=== PATIENT | male | born 1980 | race Caucasian/White ===

== ENCOUNTER → 2021-05-18 14:09 | Outpatient (CLI) | payer MEDICAID, SELFPAY ==
--- NOTE | 2021-05-18 14:37 | RAD_ITS ---
EXAM: XR CHEST, 2 VIEWS CLINICAL INDICATION: COPD TECHNIQUE: Frontal and lateral views of the chest. This report was created using [employer] report generation technology. COMPARISON: None. FINDINGS: LUNGS AND PLEURAL SPACES: Unremarkable. No consolidation or edema. No pneumothorax. No effusion. HEART: Unremarkable. Cardiac silhouette not enlarged. MEDIASTINUM: Central airways and mediastinal contour are unremarkable. BONES/JOINTS: Unremarkable. SOFT TISSUES: Unremarkable. RAD/Chest PA and Lateral IMPRESSION: No radiographic evidence of acute cardiopulmonary disease. Electronically Signed: Antelmo Mendoza MD at 16:49 EDT , Service support ,
[2021-05-18 16:23] LABS: Absolute Lymphocyte Count 1.88 X10^3/uL (0.83-4.51); Absolute Neutrophil Count 9.7 X10^3/uL (2.0-7.7); Basophil# 0.04 X10^3/uL; Basophil% 0.3 % (0-1); Eosinophil# 0.06 X10^3/uL; Eosinophils% 0.5 % (0-5); Hematocrit 47.1 % (40-54); Hemoglobin 15.2 g/dL (13.0-16.5); Lymphocyte # 1.88 X10^3/ul (0.83-4.51); Lymphocyte % 15.3 % (19-41); Mean Corp Hgb Conc 32.3 g/dL (32-36); Mean Corpuscular Hgb 29.1 pg (27.0-32.0); Mean Corpuscular Volume 90.2 fL (80-94); Mean Platelet Vol. 11.7 fl (6.2-12.0); Monocyte% 4.9 % (0-10); NRBC Flagged by Analyzer 0 % (0-5); Neutrophil # 9.69 X10^3/uL (2.7-7.7); Neutrophil % 78.6 % (47-70); Platelet Count 176 K/mm3 (150-450); RBC Distribution Width CV 13.6 % (11.6-14.6); RBC Distribution Width SD 45.8 fl (35.1-43.9); Red Blood Count 5.22 M/mm3 (4.6-6.2); White Blood Count 12.3 K/mm3 (4.4-11.0)
[2021-05-18 17:14] LABS: ALB/GLOB Ratio 1.2 RATIO (0.9-2.4); AST(SGOT) 14 U/L (15-37); Alanine Aminotransfer ALT/SGPT 19 U/L (16-61); Alkaline Phosphatase 108 U/L (45-117); Anion Gap 7 (5-15); BUN 15 mg/dL (7-18); BUN/Creat Ratio 14.6 RATIO (10-20); Calcium,Total 9.2 mg/dL (8.5-10.1); Chloride 102 mmol/L (98-107); Cholesterol 267 mg/dL (200); Creatinine, Serum 1.03 mg/dL (0.70-1.30); EST Glomerular Filtration Rate 84 mL/min (>60); Est Glom Filt Rate - Afr Amer 102 mL/min (>60); Globulin 3.4 g/dL (2.2-4.2); Glucose 81 mg/dL (74-106); High Density Lipoprotein 42 mg/dL; Potassium 3.9 mmol/L (3.5-5.1); Protein, Total 7.4 g/dL (6.4-8.2); Sodium Level 139 mmol/L (136-145); Thyroid Stim Hormone (TSH) 1.17 uIU/mL (0.358-3.74); Triglycerides 171 mg/dL; Very Low Density Lipoprotein 34 mg/dL (5-40)
== END ==
PROVIDERS: Referring Provider Nurse Practitioner Adult Health; Visit Provider Nurse Practitioner Adult Health
DX: J44.9 Chronic obstructive pulmonary disease, unspecified (principal)
CPT/HCPCS: 36415; 71046; 80053; 80061; 84443; 85025

== ENCOUNTER 2021-06-05 21:50 | Emergency (ER) | payer MEDICAID, SELFPAY ==
[2021-06-05 21:52] VITALS: BP 112/72; PULSE 69; RESP 16; TEMP 36.2; O2SAT 99; BMI 21.0
--- NOTE | 2021-06-05 22:13 | EX.ED.DYSGE1 ---
HPI History of Present Illness Chief Complaint: Abscess Narrative Narrative: Patient presenting for evaluation secondary to an axillary abscess. Patient states that this been present for approximately a month. States that initially it was small in size but over the course of the last week or 2 it significantly increased in size and was increasing in pain. Reports that he developed a pustule over top of it, and then today it is spontaneously ruptured expelling a large amount of purulent fluid that he described as looking like large. Patient states that he is able to express some more fluid out of it, but was not sure what to do now that it ruptured now is presenting for further evaluation. Patient denies any history of chronic medical issues. Denies any history of immunosuppression. He has not had any fever associated with this. The first time is ever had a abscess such as this. Review of systems otherwise negative. PFSH PFSH Home Medications sulfamethoxazole-trimethoprim [Bactrim DS] 1 tab PO BID #14 tab 06/05/21 [Rx Last Taken Unknown] Allergy/AdvReac Type Severity Reaction Status Date / Time No Known Allergies Allergy Verified 06/05/21 21:51 ROS ROS ED Constitutional Constitutional ED: Denies fever(s) Cardiovascular Cardiovascular: Denies chest pain Respiratory/Chest Respiratory/Chest: Denies cough or dyspnea Gastrointestinal Gastrointestinal: Denies vomiting Musculoskeletal Musculoskeletal: Denies myalgias Integumentary Reports abscess Neurologic Neurologic: Denies weakness EXAM Physical Exam Const Vital Signs: 06/05/21 21:52 Temperature 97.2 F L Temperature Source Temporal Pulse Rate 69 Respiratory Rate 16 Blood Pressure 112/72 Blood Pressure Mean 85 Pulse Ox 99 Oxygen Delivery Method Room Air Positive well nourished and well developed General Appearance ED: well developed Eyes EOMs intact bilaterally Resp normal respiratory effort Cardio regular rate Extremity Extremity Narrative: Examination the patient's left axilla shows a spontaneously drained abscess measuring approximately 4 cm across with about a 1 cm area in the center where it had spontaneously ruptured. There is no evidence of remaining fluctuance. There is some surrounding erythema and induration. No lymphangitic streaking. Neuro oriented x3 Sensorium / Orientation: alert Psych mental status grossly normal Skin Wounds: wounds noted MDM MDM MDM Narrative Medical decision making narrative: Patient presented with an abscess that spontaneously drained. There is actually no indication for further opening of the wound as it measures about a centimeter and is full-thickness down into the cavity of this abscess. Patient does have some surrounding erythema. Patient be placed on a course of Bactrim. He was recommended to do antibiotic ointment over top of this and then to do warm compresses 2-3 times a day. Patient was discharged in stable condition. Discharge Plan Triage Chief Complaint: Abscess ED Provider: Kenneth Dean Dx/Rx/DC Orders Clinical Impression: Abscess of axilla, left Instructions: ED Abscess Antibiotic Treatment Only Prescriptions: New sulfamethoxazole-trimethoprim [Bactrim DS] 800-160 mg tablet 1 tab PO BID Qty: 14 RF: 0 Primary Care Provider: [facility] Rimma Lee Referrals: [facility] Rimma Lee [Primary Care Provider] - As Needed Disposition Disposition: Home, Self Care
[2021-06-05 22:27] VITALS: BP 110/71; PULSE 67; RESP 16; O2SAT 97
[2021-06-05] MEDS: Smz/Tmp Ds Tablet 1 TABLET PO (22:28)
== END 2021-06-05 22:29 | disposition home or self-care (01) ==
PROVIDERS: Emergency Provider Emergency Medicine
DX: L02.412 Cutaneous abscess of left axilla (principal)
CPT/HCPCS: 99283

== ENCOUNTER 2021-06-18 14:48 | Emergency (ER) | payer MEDICAID, SELFPAY ==
[2021-06-18 14:49] VITALS: BP 115/75; PULSE 75; RESP 16; TEMP 36.6; O2SAT 99; BMI 21.2
--- NOTE | 2021-06-18 15:08 | CCN.REFER ---
Pt. presents with left side abdominal pain. Has been ongoing for at least six months or longer. Pt. also wants treated for auditory hallucinations. reports voices say they will cut my head off. Mostly at night. Some during day. No suicidal or homicidal ideation. Pt. does see Dr. Solitario and was given Xanax one year ago, but has been having auditory hallucinations for three years.
--- NOTE | 2021-06-18 15:29 | CT_ITS ---
EXAM: CT ABDOMEN AND PELVIS WITHOUT INTRAVENOUS CONTRAST CLINICAL INDICATION: Abdominal pain TECHNIQUE: Helically acquired images were obtained of the abdomen and pelvis without intravenous contrast. This CT exam was performed using one or more of the following dose reduction techniques: automated exposure control, adjustment of the mA and/or kV according to patient size, and/or use of iterative reconstruction technique. This report was created using [employer] report generation technology. COMPARISON: None. FINDINGS: LOWER THORAX: Unremarkable. Lung bases are clear. No cardiomegaly. No significant pericardial effusion. ABDOMEN: LIVER: Unremarkable. Homogeneous. GALLBLADDER AND BILE DUCTS: Unremarkable. No calcified gallstones. No gallbladder distention or wall edema. No intra- or extrahepatic biliary ductal dilation. PANCREAS: Unremarkable. No focal cystic mass. SPLEEN: Unremarkable. Normal size without focal cystic or solid mass. ADRENALS: Unremarkable. No nodules. KIDNEYS AND URETERS: Unremarkable. Normal renal size and position. No hydronephrosis. STOMACH AND BOWEL: Unremarkable. No stomach or bowel distention. No focal inflammatory change. PELVIS: APPENDIX: No evidence of acute appendicitis. Normal visualized appendix. BLADDER: Unremarkable. REPRODUCTIVE: Unremarkable as visualized. No mass. ABDOMEN and PELVIS: INTRAPERITONEAL SPACE: Unremarkable. No ascites or other fluid collection. No free air. BONES/JOINTS: Unremarkable. No suspicious lytic or blastic abnormality. SOFT TISSUES: Unremarkable. No discrete abdominal or pelvic wall hernia. VASCULATURE: Unremarkable. Abdominal aorta is normal in caliber. LYMPH NODES: Unremarkable. No enlarged lymph nodes. CT/Abdomen/Pelvis without Cont IMPRESSION: Negative CT of the abdomen and pelvis without intravenous contrast. Electronically Signed: Salma Lemon MD at 16:26 EST Tel , Service support ,
--- NOTE | 2021-06-18 15:33 | EX.ED.DYSGE1 ---
HPI History of Present Illness Chief Complaint: Mental Health Detail of Chief Complaint: Auditory hallucinations Informant: patient and spouse/S.O. Onset/Context/Timing Onset: - (2 years) Context: Gradual Onset Timing: Waxes and wanes Worsened by: Nighttime Relieved by: Nothing Narrative Narrative: Patient presents with left-sided abdominal pain that has been constant for several months. Patient states it is over his left lower abdomen and left flank area. Patient admits to some nausea but denies any vomiting or diarrhea. Patient denies any melena. Patient denies any dysuria or hematuria. Patient states he gets occasional urinary frequency. Patient denies any fevers or chills. Patient also states that he has some auditory hallucinations that are worse at night. Patient states these have been constant for the past 2 years. Patient states he was given a prescription for Xanax which has not helped. states that patient was also taking melatonin with the Xanax. states that he has not been sleeping much because of the voices despite the melatonin and Xanax. Patient states the voices are telling him that they are going to hurt him but they are not telling him to hurt himself. They are not telling him to hurt anyone else. [facility] Medical History (Updated 06/18/21 @ 20:[address] Rainer Andersen DO) COPD (chronic obstructive pulmonary disease) Home Medications alprazolam 1 mg PO QPM 06/18/21 [History Last Taken Unknown] zolpidem [Ambien] 5 mg PO QHS PRN #30 tab 06/18/21 [Rx Last Taken Unknown] Allergy/AdvReac Type Severity Reaction Status Date / Time No Known Allergies Allergy Verified 06/05/21 21:51 Surgical History no surgical history no surgical history Social History Smoking Status: Current every day smoker tobacco type: cigarettes ROS ROS ED Constitutional Constitutional ED: Denies chills or fever(s) Eyes Eyes: Denies blurry vision or change in vision ENT ENT ED: Reports ear pain bilateral; Denies rhinorrhea or sore throat Cardiovascular Cardiovascular: Denies chest pain or palpitations Respiratory/Chest Respiratory/Chest: Reports cough and sputum; Denies dyspnea Gastrointestinal Gastrointestinal: Reports abdominal pain and nausea; Denies diarrhea, melena or vomiting Genitourinary Genitourinary ED: Reports urinary frequency; Denies dysuria or hematuria Musculoskeletal Musculoskeletal: Reports back pain and neck pain Integumentary Denies abscess or rash Neurologic Neurologic: Denies headache(s) or weakness Allergic/Immunologic Allergic/Immunologic ED: Denies mouth swelling or urticaria EXAM Physical Exam Const Vital Signs: 06/18/21 14:49 06/18/21 16:45 Temperature 97.8 F Temperature Source Temporal Pulse Rate 75 53 L Respiratory Rate 16 20 H Blood Pressure 115/75 116/76 Blood Pressure Mean 88 89 Pulse Ox 99 100 Oxygen Delivery Method Room Air Room Air Positive well nourished and well developed General Appearance ED: well developed HEENT Reports moist mucous membranes Neck supple and no JVD Resp normal respiratory effort and clear to auscultation bilaterally Cardio regular rate, regular rhythm and no murmurs GI normal to inspection, nondistended, normoactive bowel sounds Palpation: soft and tender LLQ (Mild); Negative for guarding or rebound tenderness present Back/Spine General Back: CVA tenderness left (Mild) Extremity normal to inspection General Extremety ED: Negative for edema or tenderness General Extremity: Negative for edema Neuro oriented x3, CN's II-XII intact bilaterally and no sensory deficits noted Sensorium / Orientation: alert Motor Exam: strength 5/5 throughout Psych mental status grossly normal Thought Content: No suicidality, No homicidality, No delusion(s) and hallucination(s) Positive for auditory Skin no rashes or lesions noted MDM MDM MDM Narrative Medical decision making narrative: CBC and comprehensive metabolic profile were obtained were within normal limits. Lipase was normal. Urinalysis does not show any evidence of urinary tract infection. Urine tox screen was positive for benzodiazepines which is prescribed. Serum alcohol level was normal. CT scan of the abdomen and pelvis was obtained. There is no acute intra-abdominal abnormality. Case was discussed with crisis counselor. She was able to arrange for an appointment tomorrow at 10 AM at the counseling center. Patient was instructed to stop taking his Xanax. Patient was given a prescription for Ambien. Patient was instructed to follow-up as scheduled. Patient requested referral to a automobile upholsterer apprentice. Patient was given the name of the automobile upholsterer apprentice. Patient understood and was agreeable with the plan. All questions were answered. Lab Data Attestation: I reviewed the patient's lab results. Labs: Laboratory Results - last 24 hr 06/18/21 06/18/21 06/18/21 15:45 15:45 15:45 WBC 10.7 RBC 5.20 Hgb 15.6 Hct 47.5 MCV 91.3 MCH 30.0 MCHC 32.8 RDW Std Deviation 46.0 H RDW Coeff of Ben 13.5 Plt Count 187 MPV 10.0 Immature Gran % (Auto) 0.400 Neut % (Auto) 65.4 Lymph % (Auto) 26.1 [place] % (Auto) 5.9 Eos % (Auto) 1.5 Baso % (Auto) 0.7 Absolute Neuts (auto) 7.0 Absolute Lymphs (auto) 2.80 Nucleated RBC % 0 Sodium 138 Potassium 4.3 Chloride 105 Carbon Dioxide 32.0 Anion Gap 1 L BUN 9 Creatinine 0.94 Estim Creat Clear Calc 97.21 Est GFR (MDRD) Af Amer 114 Est GFR (MDRD) Non-Af 94 BUN/Creatinine Ratio 9.6 L Glucose 86 Calcium 8.9 Total Bilirubin 0.20 AST 12 L ALT 13 L Alkaline Phosphatase 94 Total Protein 6.8 Albumin 3.5 Globulin 3.3 Albumin/Globulin Ratio 1.1 Lipase 230 Urine Color Urine Clarity Urine pH Ur Specific [place] Urine Protein Urine Glucose (UA) Urine Ketones Urine Occult Blood Urine Nitrite Urine Bilirubin Urine Urobilinogen Ur Leukocyte Esterase Urine RBC Urine WBC Ur Squamous Epith Cells Urine Bacteria Urine Mucus Urine Opiates Screen Urine Methadone Screen Ur Barbiturates Screen Ur Phencyclidine Scrn Ur Amphetamines Screen U Methamphetamin-MDMA U Benzodiazepines Scrn Urine Cocaine Screen U Cannabinoids Screen Ur Drug Screen Comment Ethyl Alcohol < 3.0 06/18/21 06/18/21 15:45 15:45 WBC RBC Hgb Hct MCV MCH MCHC RDW Std Deviation RDW Coeff of Ben Plt Count MPV Immature Gran % (Auto) Neut % (Auto) Lymph % (Auto) [place] % (Auto) Eos % (Auto) Baso % (Auto) Absolute Neuts (auto) Absolute Lymphs (auto) Nucleated RBC % Sodium Potassium Chloride Carbon Dioxide Anion Gap BUN Creatinine Estim Creat Clear Calc Est GFR (MDRD) Af Amer Est GFR (MDRD) Non-Af BUN/Creatinine Ratio Glucose Calcium Total Bilirubin AST ALT Alkaline Phosphatase Total Protein Albumin Globulin Albumin/Globulin Ratio Lipase Urine Color Yellow Urine Clarity Clear Urine pH 7.0 Ur Specific [place] 1.010 Urine Protein Negative Urine Glucose (UA) Normal Urine Ketones Negative Urine Occult Blood Negative Urine Nitrite Negative Urine Bilirubin Negative Urine Urobilinogen Normal Ur Leukocyte Esterase Negative Urine RBC 0-5 SEEN Urine WBC 0-5 SEEN Ur Squamous Epith Cells 0-5 SEEN Urine Bacteria 0 SEEN Urine Mucus 0 SEEN Urine Opiates Screen NEGATIVE Urine Methadone Screen NEGATIVE Ur Barbiturates Screen NEGATIVE Ur Phencyclidine Scrn NEGATIVE Ur Amphetamines Screen NEGATIVE U Methamphetamin-MDMA NEGATIVE U Benzodiazepines Scrn POSITIVE H Urine Cocaine Screen NEGATIVE U Cannabinoids Screen NEGATIVE Ur Drug Screen Comment Ethyl Alcohol Radiography Diagnostic Testing: Clinical Impression(s) from Imaging Studies Abdomen/Pelvis CT 06/18/21 15:29 IMPRESSION: Negative CT of the abdomen and pelvis without intravenous contrast. Electronically Signed: Salma Lemon MD at 16:26 EST Tel , Service support , Discharge Plan Triage Chief Complaint: Mental Health Other Complaint: Abd Pain ED Provider: Rainer Andersen Dx/Rx/DC Orders Clinical Impression: Auditory hallucinations, Abdominal pain in male Instructions: ED Abdominal Pain Unkn Cause Male..., ED Symptoms With Uncertain Cause Prescriptions: New zolpidem [Ambien] 5 mg tablet 5 mg PO QHS PRN (Reason: insomnia) Qty: 30 RF: 0 No Action alprazolam 0.5 mg tablet 1 mg PO QPM RF: 0 Primary Care Provider: [facility] Rimma Lee Referrals: Counseling,Center [GROUP OF PHYSICIANS] - 1 Day Noe Iyer DO [STAFF PHYSICIAN] [facility]7 [facility] Disposition Disposition: Home, Self Care
[2021-06-18] MEDS: Ketorolac 30 MG/ML Syringe IV (15:44)
[2021-06-18] MEDS: 0.9% Normal Saline 1,000 ML 1000 ML IV (15:44)
[2021-06-18 15:52] LABS: Bacteria 0 SEEN /hpf (None Seen); Mucous, Urine 0 SEEN /hpf (<or=2+)
[2021-06-18 15:57] LABS: Glucose, Dipstick Normal (Normal); Ketone-Dipstick Negative (Negative); Leukocyte Esterase-Dipstick Negative /ul (Negative); Nitrite-Dipstick Negative (Negative); Occult Blood-Urine Negative /ul (Negative); Protein-Dipstick Negative (Negative); Urine Bilirubin Dipstick Negative (Negative); Urine Urobilinogen Normal (Normal)
[2021-06-18 15:58] LABS: Basophil# 0.07 X10^3/uL; Basophil% 0.7 % (0-1); Eosinophil# 0.16 X10^3/uL; Eosinophils% 1.5 % (0-5); Hematocrit 47.5 % (40-54); Hemoglobin 15.6 g/dL (13.0-16.5); Lymphocyte % 26.1 % (19-41); Mean Corp Hgb Conc 32.8 g/dL (32-36); Mean Corpuscular Volume 91.3 fL (80-94); Monocyte# 0.63 X10^3/uL; Monocyte% 5.9 % (0-10); NRBC Flagged by Analyzer 0 % (0-5); Neutrophil # 7.02 X10^3/uL (2.7-7.7); Neutrophil % 65.4 % (47-70); Platelet Count 187 K/mm3 (150-450); RBC Distribution Width CV 13.5 % (11.6-14.6); White Blood Count 10.7 K/mm3 (4.4-11.0)
[2021-06-18 16:02] LABS: Color, Urine Yellow (Yellow); Urine Clarity Clear (Clear)
[2021-06-18 16:04] LABS: Squamous Epithelial Cells - UA 0-5 SEEN /hpf (0-5)
[2021-06-18 16:06] LABS: Red Blood Cells-Urine 0-5 SEEN /hpf (0-5); White Blood Cells 0-5 SEEN /hpf (0-5)
[2021-06-18 16:31] LABS: Amphetamine Urine VISTA NEGATIVE (<1000 ng/mL); Barbiturate Urine VISTA NEGATIVE (< 200 ng/mL); Benzodiazepine Urine VISTA POSITIVE (< 200 ng/mL); Cocaine Urine VISTA NEGATIVE (< 300 ng/mL); Ecstacy Urine VISTA NEGATIVE (< 500 ng/mL); Methadone Urine VISTA NEGATIVE (< 300 ng/mL); PCP Urine VISTA NEGATIVE (< 25 ng/mL); THC Urine VISTA NEGATIVE (< 50 ng/mL); Vista UDS pH Range 6
[2021-06-18 16:32] LABS: ALB/GLOB Ratio 1.1 RATIO (0.9-2.4); AST(SGOT) 12 U/L (15-37); Alanine Aminotransfer ALT/SGPT 13 U/L (16-61); Albumin, Serum 3.5 g/dL (3.2-5.0); Alcohol, Blood (Medical)-Serum < 3.0 mg/dL; Alkaline Phosphatase 94 U/L (45-117); Anion Gap 1 (5-15); BUN 9 mg/dL (7-18); BUN/Creat Ratio 9.6 RATIO (10-20); Calcium,Total 8.9 mg/dL (8.5-10.1); Chloride 105 mmol/L (98-107); Creatinine, Serum 0.94 mg/dL (0.70-1.30); EST Glomerular Filtration Rate 94 mL/min (>60); Est Glom Filt Rate - Afr Amer 114 mL/min (>60); Estimated Creatinine Clearance 97.21 ml/min; Globulin 3.3 g/dL (2.2-4.2); Glucose 86 mg/dL (74-106); Lipase 230 U/L (73-393); Potassium 4.3 mmol/L (3.5-5.1); Protein, Total 6.8 g/dL (6.4-8.2); Sodium Level 138 mmol/L (136-145)
[2021-06-18 16:45] VITALS: BP 116/76; PULSE 53; RESP 20; O2SAT 100
--- NOTE | 2021-06-18 17:36 | ED.RN ---
SHASHI WITH CRISIS WILL BE IN TO SEE THE PT. SHE IS CURRENTLY DEALING WITH ANOTHER SITUATION IN THE COMMUNITY.
--- NOTE | 2021-06-18 19:31 | ED.RN ---
PAPERWORK FAXED TO CRISIS
--- NOTE | 2021-06-18 20:07 | ED.RN ---
Cheryl, from Crisis, states that pt. is okay to be discharged home. Pt. has a follow up appointment with her in the morning, as well as a referral to psychiatry.
[2021-06-18 20:28] VITALS: RESP 16
== END 2021-06-18 20:29 | disposition home or self-care (01) ==
PROVIDERS: Emergency Provider Emergency Medicine
DX: R44.0 Auditory hallucinations (principal); R10.32 Left lower quadrant pain; J44.9 Chronic obstructive pulmonary disease, unspecified; F17.210 Nicotine dependence, cigarettes, uncomplicated
CPT/HCPCS: 74176; 80053; 80307; 81001; 82077; 83690; 85025; 87426; 96361; 96374; 99285; J7030; A4216

== ENCOUNTER → 2021-07-04 15:22 | Outpatient (CLI) | payer MEDICAID, SELFPAY ==
[2021-07-04 16:49] LABS: Absolute Lymphocyte Count 2.86 X10^3/uL (0.83-4.51); Absolute Neutrophil Count 4.5 X10^3/uL (2.0-7.7); Basophil# 0.06 X10^3/uL; Basophil% 0.7 % (0-1); Eosinophil# 0.15 X10^3/uL; Eosinophils% 1.9 % (0-5); Hemoglobin 15.9 g/dL (13.0-16.5); Lymphocyte # 2.86 X10^3/ul (0.83-4.51); Lymphocyte % 35.3 % (19-41); Mean Corp Hgb Conc 33.1 g/dL (32-36); Mean Corpuscular Hgb 30.3 pg (27.0-32.0); Mean Corpuscular Volume 91.6 fL (80-94); Mean Platelet Vol. 11.7 fl (6.2-12.0); Monocyte% 6.2 % (0-10); NRBC Flagged by Analyzer 0 % (0-5); Neutrophil # 4.51 X10^3/uL (2.7-7.7); Neutrophil % 55.7 % (47-70); Platelet Count 162 K/mm3 (150-450); RBC Distribution Width CV 13.8 % (11.6-14.6); RBC Distribution Width SD 46.8 fl (35.1-43.9); Red Blood Count 5.24 M/mm3 (4.6-6.2); White Blood Count 8.1 K/mm3 (4.4-11.0)
[2021-07-04 17:37] LABS: Lipase 164 U/L (73-393)
[2021-07-06 08:43] LABS: H. Pylori Antibody (IgG) 5.61 (0.00-0.79)
== END ==
PROVIDERS: Visit Provider Nurse Practitioner Adult Health
DX: R10.84 Generalized abdominal pain (principal)
CPT/HCPCS: 36415; 83690; 85025; 86677

== ENCOUNTER 2022-02-05 16:23 | Emergency (ER) | payer MEDICAID, SELFPAY ==
[2022-02-05 16:23] VITALS: BP 114/69; PULSE 60; RESP 18; TEMP 37.2; O2SAT 97; BMI 21.1
--- NOTE | 2022-02-05 17:09 | EKG12_ITS ---
Test Reason : ABDOMINAL PAIN Blood Pressure : / mmHG Vent. Rate : 066 BPM Atrial Rate : 066 BPM P-R Int : 158 ms QRS Dur : 084 ms QT Int : 404 ms P-R-T Axes : 073 110 038 degrees QTc Int : 423 ms Normal sinus rhythm with sinus arrhythmia Septal infarct , age undetermined , cannot be excluded Abnormal ECG Confirmed by VERNA MACIEL, BORIS ([id number]), editor farm journal JAVID HAYS ([id number]) on 02/07/2022 8:47:27 AM Referred By: KONSTANTIN/SOPHIA Confirmed By:BORIS GILLESPIE MD
--- NOTE | 2022-02-05 17:10 | EX.ED.DYSGE1 ---
HPI History of Present Illness Chief Complaint: Abd Pain Informant: patient Narrative Narrative: Patient presents with left upper quadrant area pain. It sounds like this is likely been going on for a year or more. It sometimes is bothered with motion. Sometimes food makes it better sometimes food makes it worse. He has been seen here for it had blood work and CAT scan. He just saw his doctor within the past week. He has a referral going to gastroenterology. He did not tell me he was started on pantoprazole. We found out on his med list that this was just filled. After extensive questioning we find out that he did fill this and just started it 2 days ago. No interval change. He does get a very acid sour taste in his mouth intermittently when the symptoms are acting up. He states sometimes it seems to move up into his chest a little bit. But he is not short of breath. He does have some COPD but is not having problems. In addition to meds listed, he is also on atorvastatin. This is not new or different. He has no abdominal surgery history. No blood in his stool. He is not vomiting. No fevers or chills. Nothing was really different today. He he just was concerned that he has not gotten a referral to Dr. Iyer after seeing his doctor for this this past week. He is frustrated that the symptoms are still going on after almost a year or more. [facility] Medical History COPD (chronic obstructive pulmonary disease) Home Medications albuterol sulfate 90 mcg/actuation aerosol inhaler inh inhalation 02/05/22 [History Last Taken Unknown] pantoprazole 40 mg tablet,delayed release 1 tab PO DAILY 02/05/22 [History Last Taken Unknown] Allergy/AdvReac Type Severity Reaction Status Date / Time No Known Allergies Allergy Verified 02/05/22 16:30 Social History Smoking Status: Current every day smoker tobacco type: cigarettes ROS ROS ED Constitutional Constitutional ED: Denies chills, fever(s) or weight loss ENT ENT ED: Reports other Details: Is it of occasional acid taste in throat. ; Denies rhinorrhea or sore throat Cardiovascular Cardiovascular: Denies chest pain Respiratory/Chest Respiratory/Chest: Denies cough or dyspnea Gastrointestinal Gastrointestinal: Reports abdominal pain and nausea; Denies constipation, diarrhea, melena or vomiting Genitourinary Genitourinary ED: Denies dysuria or hematuria Musculoskeletal Musculoskeletal: Denies back pain Integumentary Denies rash Neurologic Neurologic: Denies paresthesias or weakness Endocrine Endocrinology: Denies polydipsia or polyuria Hematologic/Lymphatic Hematologic/Lymphatic: Denies anemia, easy bleeding or easy bruising EXAM Physical Exam Const Vital Signs: 02/05/22 16:23 Temperature 99.0 F Temperature Source Temporal Pulse Rate 60 Respiratory Rate 18 Blood Pressure 114/69 Blood Pressure Mean 84 Pulse Ox 97 Oxygen Delivery Method Room Air Positive well nourished and well developed General Appearance ED: well developed and NAD; Negative for cyanotic or diaphoretic HEENT Reports moist mucous membranes Eyes General Eye ED: Negative for pale conjunctiva or scleral icterus Neck no JVD Chest Wall inspection of chest normal Resp normal respiratory effort and clear to auscultation bilaterally Resp Narrative: But no pain with deep breath Auscultation: Negative for rales, rhonchi or wheezes Cardio regular rate and regular rhythm Rate: Negative for bradycardia or tachycardic GI normal to inspection, nondistended, normoactive bowel sounds and non-tender GI Narrative: Abdomen has no tenderness on exam. Auscultation: normoactive bowel sounds Back/Spine no CVA tenderness Extremity normal to inspection General Extremety ED: Negative for edema or tenderness General Extremity: Negative for edema Neuro oriented x3 Psych mental status grossly normal MDM MDM MDM Narrative Medical decision making narrative: Patient's blood work shows normal CBC. Electrolytes are normal. Liver function tests are overall normal. Lipase is normal. Because the patient is left upper quadrant and occasionally goes into the chest I did check a troponin is negative also. I also did abdominal and chest films that showed no acute process. Patient's been having symptoms for months to year. He just started pantoprazole about 2 days ago. I think he should continue this. I think outpatient follow-up is appropriate. Lab Data Attestation: I reviewed the patient's lab results. Labs: Laboratory Results - last 24 hr 02/05/22 02/05/22 17:25 17:25 WBC 8.3 RBC 5.29 Hgb 15.9 Hct 47.1 MCV 89.0 MCH 30.1 MCHC 33.8 RDW Std Deviation 44.1 H RDW Coeff of Ben 13.4 Plt Count 163 MPV 10.5 Immature Gran % (Auto) 0.200 Neut % (Auto) 59.6 Lymph % (Auto) 31.9 [place] % (Auto) 6.3 Eos % (Auto) 1.3 Baso % (Auto) 0.7 Absolute Neuts (auto) 5.0 Absolute Lymphs (auto) 2.65 Nucleated RBC % 0 Sodium 137 Potassium 3.8 Chloride 105 Carbon Dioxide 26.0 Anion Gap 6 BUN 8 Creatinine 0.98 Estim Creat Clear Calc 92.92 Est GFR (MDRD) Af Amer 107 Est GFR (MDRD) Non-Af 89 BUN/Creatinine Ratio 8.2 L Glucose 89 Calcium 9.1 Total Bilirubin 0.60 AST 15 ALT 14 L Alkaline Phosphatase 110 Troponin I High Sens < 3 L Total Protein 7.4 Albumin 4.0 Globulin 3.4 Albumin/Globulin Ratio 1.2 Lipase 122 Radiography Diagnostic Testing: Clinical Impression(s) from Imaging Studies Acute Abdomen Series 02/05/22 17:33 IMPRESSION: No acute findings in the chest, abdomen or pelvis. Electronically Signed: Antelmo Mendoza MD at 18:01 EDT Reading Location ID and State: [facility] / [place] , Service support , EKG Initial EKG: Comments: EKG done for upper abdominal pain read by me shows normal sinus rhythm with slight sinus arrhythmia. No ventricular ectopy. Mild baseline variation. But no acute ST elevation or depression. Slightly poor anterior R wave. MD interval, QRS duration and QTC normal Discharge Plan Triage Chief Complaint: Abd Pain ED Provider: Brooks Lawton Dx/Rx/DC Orders Clinical Impression: Left upper quadrant pain Instructions: ED Abdominal Pain Unkn Cause Male... Prescriptions: No Action pantoprazole 40 mg tablet,delayed release (DR/EC) 1 tab PO DAILY Label Comments: take 1 tablet by mouth every morning albuterol sulfate 90 mcg/actuation HFA aerosol inhaler INHALATION Label Comments: inhale 2 puffs by mouth every 4 to 8 hours if needed Primary Care Provider: [facility] Rimma Lee Referrals: Friend,DO Noe [STAFF PHYSICIAN] - As soon as possible [facility],Rimma Grace [Primary Care Provider] - Disposition Disposition: Home, Self Care
--- NOTE | 2022-02-05 17:14 | NURSING ---
NO OLD EKGS
--- NOTE | 2022-02-05 17:33 | RAD_ITS ---
EXAM: XR ABDOMEN, 2 VIEWS AND XR CHEST, 1 VIEW CLINICAL INDICATION: Pain TECHNIQUE: Frontal view of the chest, frontal view of the abdomen/pelvis and upright or decubitus view of the abdomen. This report was created using [employer] technology. COMPARISON: None. FINDINGS: CHEST: LUNGS AND PLEURAL SPACES: Unremarkable. No consolidation or edema. No pneumothorax. No effusion. HEART: Unremarkable. Cardiac silhouette not enlarged. MEDIASTINUM: Central airways and mediastinal contour are unremarkable. ABDOMEN: INTRAPERITONEAL SPACE: No free air. GASTROINTESTINAL TRACT: Unremarkable. Non-obstructive. No bowel or stomach distention. ORGANS: Unremarkable as visualized. No organomegaly. No abnormal calcifications. TUBES, LINES AND DEVICES: None. BONES/JOINTS: Scoliosis of the lumbar spine. SOFT TISSUES: No acute findings. RAD/Acute Abdomen Inc Chest IMPRESSION: No acute findings in the chest, abdomen or pelvis. Electronically Signed: Antelmo Mendoza MD at 18:01 EDT ,
[2022-02-05 17:37] LABS: Absolute Lymphocyte Count 2.65 X10^3/uL (0.83-4.51); Basophil# 0.06 X10^3/uL; Basophil% 0.7 % (0-1); Eosinophil# 0.11 X10^3/uL; Eosinophils% 1.3 % (0-5); Hematocrit 47.1 % (40-54); Hemoglobin 15.9 g/dL (13.0-16.5); Lymphocyte # 2.65 X10^3/ul (0.83-4.51); Lymphocyte % 31.9 % (19-41); Mean Corp Hgb Conc 33.8 g/dL (32-36); Mean Corpuscular Hgb 30.1 pg (27.0-32.0); Mean Platelet Vol. 10.5 fl (6.2-12.0); Monocyte# 0.52 X10^3/uL; Monocyte% 6.3 % (0-10); NRBC Flagged by Analyzer 0 % (0-5); Neutrophil # 4.96 X10^3/uL (2.7-7.7); Neutrophil % 59.6 % (47-70); Platelet Count 163 K/mm3 (150-450); RBC Distribution Width CV 13.4 % (11.6-14.6); RBC Distribution Width SD 44.1 fl (35.1-43.9); Red Blood Count 5.29 M/mm3 (4.6-6.2); White Blood Count 8.3 K/mm3 (4.4-11.0)
[2022-02-05 18:01] LABS: ALB/GLOB Ratio 1.2 RATIO (0.9-2.4); AST(SGOT) 15 U/L (15-37); Alanine Aminotransfer ALT/SGPT 14 U/L (16-61); Alkaline Phosphatase 110 U/L (45-117); Anion Gap 6 (5-15); BUN 8 mg/dL (7-18); BUN/Creat Ratio 8.2 RATIO (10-20); Calcium,Total 9.1 mg/dL (8.5-10.1); Chloride 105 mmol/L (98-107); Creatinine, Serum 0.98 mg/dL (0.70-1.30); EST Glomerular Filtration Rate 89 mL/min (>60); Est Glom Filt Rate - Afr Amer 107 mL/min (>60); Estimated Creatinine Clearance 92.92 ml/min; Globulin 3.4 g/dL (2.2-4.2); Glucose 89 mg/dL (74-106); Lipase 122 U/L (73-393); Potassium 3.8 mmol/L (3.5-5.1); Protein, Total 7.4 g/dL (6.4-8.2); Sodium Level 137 mmol/L (136-145); Troponin-I HS < 3 pg/mL (3.0-78.0)
[2022-02-05 18:45] VITALS: PULSE 70; RESP 16; O2SAT 99
== END 2022-02-05 18:53 | disposition home or self-care (01) ==
PROVIDERS: Emergency Provider Emergency Medicine; Visit Provider Emergency Medicine
DX: R10.12 Left upper quadrant pain (principal); J44.9 Chronic obstructive pulmonary disease, unspecified; F17.210 Nicotine dependence, cigarettes, uncomplicated; E78.5 Hyperlipidemia, unspecified
CPT/HCPCS: 36415; 74022; 80053; 80061; 83690; 84484; 85025; 85027; 93005; 99283; A4216

== ENCOUNTER → 2022-02-05 | Outpatient (CLI) | payer MEDICAID, SELFPAY ==
[2022-02-05 16:22] LABS: Hematocrit 49.3 % (40-54); Hemoglobin 16.1 g/dL (13.0-16.5); Mean Corp Hgb Conc 32.7 g/dL (32-36); Mean Corpuscular Hgb 29.4 pg (27.0-32.0); Mean Platelet Vol. 11.2 fl (6.2-12.0); Platelet Count 172 K/mm3 (150-450); RBC Distribution Width CV 13.3 % (11.6-14.6); RBC Distribution Width SD 44.4 fl (35.1-43.9); Red Blood Count 5.48 M/mm3 (4.6-6.2); White Blood Count 6.4 K/mm3 (4.4-11.0)
[2022-02-05 16:51] LABS: ALB/GLOB Ratio 1.3 RATIO (0.9-2.4); AST(SGOT) 15 U/L (15-37); Alanine Aminotransfer ALT/SGPT 14 U/L (16-61); Albumin, Serum 4.2 g/dL (3.2-5.0); Alkaline Phosphatase 111 U/L (45-117); Anion Gap 6 (5-15); BUN 8 mg/dL (7-18); BUN/Creat Ratio 7.9 RATIO (10-20); Calcium,Total 9.3 mg/dL (8.5-10.1); Chloride 105 mmol/L (98-107); Cholesterol 158 mg/dL (200); Creatinine, Serum 1.01 mg/dL (0.70-1.30); EST Glomerular Filtration Rate 86 mL/min (>60); Est Glom Filt Rate - Afr Amer 104 mL/min (>60); Globulin 3.3 g/dL (2.2-4.2); Glucose 92 mg/dL (74-106); High Density Lipoprotein 46 mg/dL; Potassium 4.2 mmol/L (3.5-5.1); Protein, Total 7.5 g/dL (6.4-8.2); Sodium Level 138 mmol/L (136-145); Triglycerides 118 mg/dL; Very Low Density Lipoprotein 24 mg/dL (5-40)
== END | disposition home or self-care (01) ==
LOC: LAB 15:31
PROVIDERS: Visit Provider Nurse Practitioner Adult Health
DX: E78.5 Hyperlipidemia, unspecified (principal)
CPT/HCPCS: 36415; 80061; 80053; 85027